=== PATIENT | male | born 1990 | race African-American/Black ===

== ENCOUNTER 2022-07-03 20:36 | Emergency (ER) | payer SELFPAY ==
[~2022-07-03] VITALS: Ht 177.8 cm; Wt 110.0 kg
[2022-07-03 20:36] VITALS: BP 141/103
[2022-07-03] MEDS ORDERED: ACETAMINOPHEN 500 MG TAB PO ONE (21:45)
== END 2022-07-05 19:30 | disposition home or self-care (01) ==
LOC: ER 20:36 → EDBD 20:36 → ER 07-05 19:30
DX: S50.02XA Contusion of left elbow, initial encounter (principal); S00.83XA Contusion of other part of head, initial encounter; Y04.8XXA Assault by other bodily force, initial encounter; Y93.89 Activity, other specified; Y92.89 Other specified places as the place of occurrence of the external cause; Y99.8 Other external cause status
CPT/HCPCS: 29105; 70486; 73080; 73090